=== PATIENT | female | born 1980 | race Caucasian/White ===

== ENCOUNTER 2018-11-07 07:04 | Inpatient (IN) | payer MEDICAID ==
[~2018-11-07] VITALS: Ht 160 cm; Wt 99.3 kg
[~2018-11-07 07:04] MED LIST: DOCU240C84 PO; FERR-41 PO; IBUP600T22 PO; OXYC-865 PO; SERT-173 PO; TRAZ50 PO
[2018-11-07 07:20] VITALS: BP 124/72; Ht 160 cm; Wt 99.3 kg
[2018-11-07] MEDS ORDERED: FLUSH 10 ML SYR IVP PRN ×2 (08:25→09:05)
[2018-11-07] MEDS ORDERED: OXYTOCIN 30 UNIT/D5LR 500 ML 500 ML IV PRN ×2 (08:25→09:03)
[2018-11-07] MEDS ORDERED: FAMOTIDINE(*) 20MG/50ML PREMIX 50 ML IVPB PRN (08:25)
[2018-11-07] MEDS ORDERED: METOCLOPRAMIDE 10 MG/2 ML SDV IVP PRN (08:25)
[2018-11-07] MEDS ORDERED: cefOXitin/DEX(*) 2GM/50ML PREM 50 ML IVPB PRN (08:25)
[2018-11-07] MEDS ORDERED: DLR(*) 1000 ML BAG 1,000 ML IV PRN (08:25)
[2018-11-07] MEDS ORDERED: LIDOCAINE 1% LOCAL 300 MG/30ML INJ PRN (08:25)
[2018-11-07] MEDS ORDERED: fentaNYL CITR 100 MCG/2 ML AMP IVP PRN (09:05)
[2018-11-07] MEDS ORDERED: LIDOCAINE/SOD BICARB 8.4% SYR SC PRN (09:05)
[2018-11-07] MEDS ORDERED: TERBUTALINE SULF 1 MG/ML VIAL IVP PRN (09:05)
[2018-11-07 09:18] LABS: PLATELET COUNT, AUTOMATED 193 K/uL (150-450)
--- NOTE | 2018-11-07 09:27 | History & Physical ---
History of Present Illness Age of Patient: 37 : 4 Para or TPAL: 3 EDC per LMP: Nov 12, 2018 Estimated Gestational Age: 39.2 Chief Complaint Ruptured membranes History of Present Illness Presented this AM with report of ruptured membranes with a large gush of fluid. No bleeding and no significant contractions currently. Pt has had a prior C/S for breech with her last in 2012 with 2 prior vaginal deliveries at 9 lbs each. She has a history of prior cervical dysplasia and a LEEP in 2010 and 2016. She desires sterilization but is waiting until is resolved to then have a hysterectomy due to heavy bleeding and pain with periods. uncomplicated otherwise. Past Medical, Surgical, Family and Obstetric Histories reviewed. Please see ACOG chart. History Allergies: Coded Allergies: Estrogens (Verified Allergy, Intermediate, rash, 04/05/13) rash and nausea with PO Birthcontrol Uncoded Allergies: VITAMINS (Allergy, Unknown, 10/17/18) Med Rec Home Meds Reported Medications Ibuprofen (IBUPROFEN) 600 Mg Tablet, 1 TAB PO Q6H, #30 Last dose at 10:30 04/07/13 04/07/13 Oxycodone Hcl/Acetaminophen (PERCOCET 5-325 MG TABLET) 1 Each Tablet, 1 - 2 EACH PO Q4H, #30 do not take more than 8 pills in 24 hours 04/07/13 Ferrous Sulfate (FERROUS SULFATE) 325 Mg Tablet.dr, 325 MG PO BID, #60 04/07/13 Review of Systems All Systems Reviewed/Normal: Yes, Except as Noted Exam General Exam General Apperance: Alert/Awake/No Acute Distress Neuro: No Gross deficits Eyes: Normal Extraocular Movement & Vison Cardiovascular: Regular Rate and Rhythm Respiratory: No Respiratory Distress, Clear to Auscultation Abdomen: Soft, Non-Tender, Non-Distended Integumentary: Skin Intact without Lesions or Rash Psychological: Alert & Oriented X3, Appropriate Mood & Affect Cervical Dialation: 2 Cervical Effacement (%): 60 Cervical Consistency: Soft Cervical Position: Mid Station: -2 Presentation: Vertex Fetus Heart Tone Variabilty: Moderate FHT Accelerations: 15X15 FHT Category: I Medical Decision Making VTE Prophylasis: Adult Deep Vein Thrombosis/Pulmonary: No Pharmacological Contraindicati: Pt at Low Risk for VTE Mechanical Contraindications: Pt at Low Risk for VTE Assessment and Plan Problems: (1) Uterine scar from previous delivery affecting Assessment & Plan: Have had a long discussion of TOLAC and [place]. Reviewed risk of rupture and difficulty in diagnosis many times. Also reviewed increase risk with augmentation or IOL with Pitocin but difficult to determine the amount of increased risk. Contrasted this discussion with the risk of and its inherent risk of infection, bleeding and longer recovery. After discussion with her family, she has elected to proceed with Pitocin induction and see how her progression into labor goes. We will reassess the situation at many times during the process and alter course if needed. (2) AMA (advanced maternal age) multigravida 35+ DAREN MONTALVO MD Nov 07, 2018 09:27
[2018-11-07] MEDS: LR(*) 1000 ML BAG 1,000 ML IV PRN ×2 (10:16→15:22)
--- NOTE | 2018-11-07 13:45 | Labor Progress Note ---
Labor Subjective Progress Notes Subjective Dong well. Pain manageable. Difficult to trace contractions and looks like there are reactive changes to FHTs. Labor Objective Vital Signs Vital Signs Date Time Temp Pulse Resp B/P (MAP) Pulse Ox O2 Delivery O2 Flow Rate FiO2 11/07/18 07:20 97.0 97 16 124/72 (89) 95 Room Air Cervical Dialation: 5 Cervical Effacement (%): 100 Cervical Consistency: Soft Cervical Position: Anterior Presentation: Vertex Fetus Heart Tone Variabilty: Moderate FHT Decelerations: Variable (with contractions) FHT Category: I Other Result Diagram: 11/07/18 0902 Assessment and Plan Problems: (1) Uterine scar from previous delivery affecting Assessment & Plan: IUPC placed to better trace contractions and reactive changes. Discussed epidural placement for use if needed. She will decide. (2) AMA (advanced maternal age) multigravida 35+ DAREN MONTALVO MD Nov 07, 2018 13:45
[2018-11-07] MEDS: fentaNYL CITR 100 MCG/2 ML AMP IVP PRN ×3 (13:51→16:27)
[2018-11-07] MEDS ORDERED: NS(*) 0.9% 1000 ML BAG 1,000 ML PV PRN (15:52)
--- NOTE | 2018-11-07 17:32 | OB Delivery Note ---
Delivery Note Vaginal Delivery Type: Spont. Vaginal Delivery Delivery Date: Nov 07, 2018 Delivery Time: 17:12 Estimated Gestational Age(wks): 39.2 Infant Sex: Male Hamilton Apgars: 1 Minute (7), 5 Minute (8) Repair Needed: Laceration, 1st Degree Estimated Blood Loss: 100 Notes: Presented for SROM today at 0200. No contractions so augmentation with Pitocin initiated. Progressed from 2 cm on admission to 5 cy by 1333, 7 cm by 1513 and complete by 1712. No anesthesia so delivered quickly over first degree laceration without any manipulation. Placenta delivered intact and spontaneous. No complications. Single figure 8 stitch placed without complication. Purchase Request Editor in Attendence: No Copies to: DAREN MONTALVO MD ; DAREN MONTALVO MD Nov 07, 2018 17:32
[2018-11-07] MEDS ORDERED: ACETAMINOPHEN 325 MG TAB PO PRN (18:20)
[2018-11-07] MEDS ORDERED: MAGNESIUM HYDROXIDE* 30ML UDCP PO PRN (18:20)
[2018-11-07] MEDS ORDERED: HYDROmorphone HCL 2 MG TAB PO PRN (18:20)
[2018-11-07] MEDS ORDERED: BENZOCAINE 20% 60 ML BTL TP PRN (18:20)
[2018-11-07] MEDS ORDERED: HYDROCORTISONE 2.5% CR 30GM TB PR PRN (18:20)
[2018-11-07] MEDS ORDERED: LANOLIN OINT 7 GM TUBE TP PRN (18:20)
[2018-11-07] MEDS ORDERED: GLYCERIN/WITCH HAZEL LEAF 1 PK TP PRN (18:20)
[2018-11-07 19:57] VITALS: BP 123/57
[2018-11-07] MEDS: DOCUSATE CALCIUM 240 MG CAP PO SCH (20:00)
[2018-11-07] MEDS: IBUPROFEN 800 MG TAB PO SCH (20:00)
[2018-11-07] MEDS: METHYLERGONOVINE MAL 0.2MG TAB PO SCH (21:15)
[2018-11-07 22:41] VITALS: BP 115/58
[2018-11-08] MEDS: IBUPROFEN 800 MG TAB PO SCH ×3 (03:03→21:13)
[2018-11-08] MEDS: METHYLERGONOVINE MAL 0.2MG TAB PO SCH ×4 (03:03→21:13)
[2018-11-08 03:05] VITALS: BP 110/56
--- NOTE | 2018-11-08 07:56 | OB/GYN Progress Note ---
OB Subjective Progress Notes Subjective Feeling well. Some more bleeding than expected and improved with Methergine. Bladder is ok. Baby went to nursery last night. GI: NEG Nausea : Voiding Well Pain: Mild OB Objective Physical Exam Vital Signs Date Time Temp Pulse Resp B/P (MAP) Pulse Ox O2 Delivery O2 Flow Rate FiO2 11/08/18 03:05 97.3 85 18 110/56 (74) 11/07/18 07:20 95 Room Air Intake and Output 11/08/18 07:00 Intake Total 1500 ml Output Total 415 ml Balance 1085 ml Intake IV Total 1500 ml Output Other 415 ml # Voids 3 General Appearance: Alert/Awake/No Acute Distress Neurological: No Gross deficits Eyes: Normal Extraocular Movement & Vison Cardiovascular: Normal Rhythm & Peripheral Pulses, Regular Rate and Rhythm Respiratory: No Respiratory Distress, Clear to Auscultation Abdomen: Soft, Non-Tender, Non-Distended, Fundus Firm, Non-Tender Integumentary: Skin Intact without Lesions or Rash Psychological: Alert & Oriented X3, Appropriate Mood & Affect Result Diagram: 11/08/18 0621 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 Home tomorrow depending on baby. May room in if needed. DAREN MONTALVO MD Nov 08, 2018 07:56
[2018-11-08] MEDS ORDERED: MEASLES,MUMP,RUBELLA VAC 0.5ML SUBQ ONE (09:00)
[2018-11-08] MEDS ORDERED: DIPHTH/TETANUS/ACEL. PERTUSSIS IM ONLY ONE (09:00)
[2018-11-08] MEDS ORDERED: INFLUENZA VIRUS VAC 0.5ML SYR IM ONLY ONE (09:00)
[2018-11-08 09:50] VITALS: BP 117/62
[2018-11-08] MEDS: DOCUSATE CALCIUM 240 MG CAP PO SCH ×2 (10:02→21:13)
[2018-11-08 11:52] VITALS: BP 121/63
[2018-11-08 16:15] VITALS: BP 109/58
[2018-11-08 22:10] VITALS: BP 114/65
[2018-11-09 04:10] VITALS: BP 103/57
[2018-11-09] MEDS: IBUPROFEN 800 MG TAB PO SCH ×2 (04:24→11:50)
[2018-11-09 08:25] VITALS: BP 114/69
[2018-11-09] MEDS: DOCUSATE CALCIUM 240 MG CAP PO SCH (08:57)
--- NOTE | 2018-11-09 09:32 | OB/GYN Progress Note ---
OB Subjective Progress Notes Subjective Doing well but worried about her baby. He has heart rate issues today and is being investigated. She feels well, no pain and bleeding scant. She notes her last children had progressively less breast milk production and wants to try something to increase her production. GI: NEG Nausea : Voiding Well Pain: Mild, Not Requiring Pain Meds OB Objective Physical Exam Vital Signs Date Time Temp Pulse Resp B/P (MAP) Pulse Ox O2 Delivery O2 Flow Rate FiO2 11/09/18 08:25 96.8 79 18 114/69 (84) 11/09/18 04:10 Room Air 11/08/18 16:15 96 Intake and Output 11/09/18 07:00 Intake Total 1780 ml Balance 1780 ml Intake Oral 1780 ml # Voids 4 General Appearance: Alert/Awake/No Acute Distress Neurological: No Gross deficits Eyes: Normal Extraocular Movement & Vison Cardiovascular: Normal Rhythm & Peripheral Pulses, Regular Rate and Rhythm Respiratory: No Respiratory Distress, Clear to Auscultation Abdomen: Soft, Non-Tender, Non-Distended, Fundus Firm, Non-Tender Integumentary: Skin Intact without Lesions or Rash Psychological: Alert & Oriented X3, Appropriate Mood & Affect Result Diagram: 11/08/18 0621 Assessment and Plan Problems: (1) Uterine scar from previous delivery affecting Assessment & Plan: s/p successful (2) AMA (advanced maternal age) multigravida 35+ (3) care and examination immediately after delivery Assessment & Plan: Will discharge to room in today. No pain medication needed. Discussed good breast feeding technique and timely pumping and nipple stimulation. DAREN MONTALVO MD Nov 09, 2018 09:32
[2018-11-09] MEDS ORDERED: IBUP800T37 PO (09:34)
--- NOTE | 2018-11-09 09:36 | OB/GYN Discharge Summary ---
Discharge Summary Reason for Hosp/Final Diag: (1) Uterine scar from previous delivery affecting Hospital Course & Plan: s/p successful (2) AMA (advanced maternal age) multigravida 35+ (3) care and examination immediately after delivery Hospital Course & Plan: Will discharge to room in today. No pain medication needed. Discussed good breast feeding technique and timely pumping and nipple stimulation. Lates Vital Signs Vital Signs Date Time Temp Pulse Resp B/P (MAP) Pulse Ox O2 Delivery O2 Flow Rate FiO2 11/09/18 08:25 96.8 79 18 114/69 (84) 11/09/18 04:10 Room Air 11/08/18 16:15 96 Weight (Pounds): 219 Result Diagram: 11/08/18620 Condition: Improved Discharge: Home, Self Skilled Nursing Meds Reported Medications Ibuprofen (IBUPROFEN) 600 Mg Tablet, 1 TAB PO Q6H, #30 Last dose at 10:30 04/07/13 04/07/13 Oxycodone Hcl/Acetaminophen (PERCOCET 5-325 MG TABLET) 1 Each Tablet, 1 - 2 EACH PO Q4H, #30 do not take more than 8 pills in 24 hours 04/07/13 Ferrous Sulfate (FERROUS SULFATE) 325 Mg Tablet., 325 MG PO BID, #60 04/07/13 Follow up Referrals: 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 Lopez [phone] Follow up in: 6 wks PP or PO Discharge Diet: As Tolerates Discharge Activity: As Tolerates, No Heavy Lifting x 6 wks, No Heavy Lifting > 10lb, Pelvic Rest Copies to: DAREN LOPEZ MD ; DAREN LOPEZ MD Nov 09, 2018 09:36
[2018-11-09] MEDS ORDERED: METOCLOPRAMIDE 10 MG TAB PO SCH (12:00)
[2018-11-09 12:20] VITALS: BP 113/65
== END 2018-11-09 16:18 | disposition home or self-care (01) | DRG 807 ==
LOC: OB 07:04
PROVIDERS: ADMIT Obstetrics & Gynecology; ATTEND Obstetrics & Gynecology
PROC: 10E0XZZ Delivery of Products of Conception, External Approach (ICD-10-PCS; principal; 2018-11-07)
PROC: 0HQ9XZZ Repair Perineum Skin, External Approach (ICD-10-PCS; 2018-11-07)
PROC: 10H07YZ Insertion of Other Device into Products of Conception, Via Natural or Artificial Opening (ICD-10-PCS; 2018-11-07)
PROC: 4A1H74Z Monitoring of Products of Conception, Cardiac Electrical Activity, Via Natural or Artificial Opening (ICD-10-PCS; 2018-11-07)
DX: O34.211 Maternal care for low transverse scar from previous cesarean delivery (principal); Z37.0 Single live birth; O70.0 First degree perineal laceration during delivery; O42.02 Full-term premature rupture of membranes, onset of labor within 24 hours of rupture; Z3A.39 39 weeks gestation of pregnancy; Z88.8 Allergy status to other drugs, medicaments and biological substances
CPT/HCPCS: 36415; 81001; 84112; 85025; 85027; 86703; 86850; 86900; 86901; J2001; J2590; J3010; J7120; J8597

== ENCOUNTER 2019-02-22 01:33 | Observation (INO) | payer BC, MEDICAID ==
[2018-11-07 07:20] VITALS: Ht 160 cm; Wt 89.8 kg
[2019-02-22] VITALS (17 sets, daily range): BP systolic 83–109; BP diastolic 55–70
[~2019-02-22] VITALS: Ht 160 cm; Wt 89.8 kg
[~2019-02-22 01:33] MED LIST changes: +IBUP800T37 PO; +MULT-1176 PO
[2019-02-22] MEDS ORDERED: FAMOTIDINE 20 MG TAB PO ONE (06:30)
[2019-02-22] MEDS ORDERED: LIDOCAINE/SOD BICARB 8.4% SYR ID ONE (06:30)
[2019-02-22] MEDS ORDERED: MIDAZOLAM 2 MG/2 ML VIAL IVP PRN (06:30)
[2019-02-22] MEDS ORDERED: cefOXitin/DEX(*) 2GM/50ML PREM 50 ML IVPB ONE (06:30)
[2019-02-22] MEDS ORDERED: NORMOSOL R SOLN(*) 1000 ML BAG 1,000 ML IV PRN (06:30)
[2019-02-22 06:42] LABS: PLATELET COUNT, AUTOMATED 267 K/uL (150-450)
[2019-02-22] MEDS ORDERED: ROPIVACAINE 0.2% 20 ML VIAL ONE (06:59)
[2019-02-22] MEDS ORDERED: MANNITOL* (20%)100 GM/500ML BG 500 ML IVPB ONE (06:59)
[2019-02-22] MEDS ORDERED: fentaNYL CITR 250 MCG/5 ML AMP ONE (07:02)
[2019-02-22] MEDS ORDERED: LIDOCAINE MPF 1% 5 ML VIAL ONE (07:03)
[2019-02-22] MEDS ORDERED: ONDANSETRON 4 MG/2 ML VIAL ONE (07:03)
[2019-02-22] MEDS ORDERED: PROPOFOL EMUL(*) 10MG/ML 20 ML 20 ML ONE (07:03)
[2019-02-22] MEDS ORDERED: DEXAMETHASONE SOD PHOS 10MG/ML ONE (07:03)
[2019-02-22] MEDS ORDERED: KETAMINE HCL 200 MG/20 ML MDV ONE (07:06)
[2019-02-22] MEDS ORDERED: HALOPERIDOL LACT 5 MG/ML VIAL IM ONE (07:20)
[2019-02-22] MEDS ORDERED: ACETAMINOPHEN(*)1000 MG/100 ML 100 ML IVPB ONE (07:20)
[2019-02-22] MEDS ORDERED: ePHEDrine 25 MG/5 ML DISP.SYR IVP ONE (07:25)
[2019-02-22] MEDS ORDERED: SUGAMMADEX SOD 200 MG/2 ML SDV ONE (07:41)
[2019-02-22] MEDS ORDERED: HYDROmorphone HCL 2 MG/ML SDV ONE (08:24)
[2019-02-22] MEDS ORDERED: KETOROLAC 30 MG/ML VIAL ONE (09:19)
--- NOTE | 2019-02-22 09:44 | Post Operative Note ---
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
[2019-02-22] MEDS ORDERED: DLR(*) 1000 ML BAG 1,000 ML IV PRN (09:49)
[2019-02-22] MEDS ORDERED: ONDANSETRON 4 MG/2 ML VIAL IV PRN (09:50)
[2019-02-22] MEDS ORDERED: ACETAMINOPHEN 325 MG TAB PO PRN (09:50)
[2019-02-22] MEDS ORDERED: HYDROmorphone HCL 2 MG TAB PO PRN (09:50)
[2019-02-22] MEDS ORDERED: INFLUENZA VIRUS VAC 0.5ML SYR IM ONE (09:50)
[2019-02-22] MEDS ORDERED: PROMETHAZINE 25 MG/ML 1 ML AMP IVP PRN (09:50)
[2019-02-22] MEDS ORDERED: oxyCODON/ACET (*)5/325MG (CII) 1 TAB TAB PO PRN (09:50)
[2019-02-22] MEDS ORDERED: SIMETHICONE 80 MG CHEW CHEW PRN (09:50)
[2019-02-22] MEDS ORDERED: OXYC-865 PO (09:55)
[2019-02-22] MEDS ORDERED: DOCU-416 PO (09:55)
[2019-02-22] MEDS ORDERED: IBUP800T37 PO (09:55)
--- NOTE | 2019-02-22 10:30 | OPERATIVE REPORT 1 ---
EVENT DATE: February 22, 2019 SURGEON: Monty Lopez MD ANESTHESIOLOGIST: Jordan Paulson MD ANESTHESIA: General endotracheal. REGIONAL MARKETING MANAGER: KAYLA Villegas PREOPERATIVE DIAGNOSES 1. Secondary dysmenorrhea. 2. Excessive infrequent menstruation with irregular cycle. 3. Menorrhagia. 4. Previous section. POSTOPERATIVE DIAGNOSES 1. Secondary dysmenorrhea. 2. Excessive infrequent menstruation with irregular cycle. 3. Menorrhagia. 4. Previous section. PROCEDURE PERFORMED 1. Robotic-assisted total laparoscopic hysterectomy. 2. Bilateral salpingectomy. 3. Modified Kang's culdoplasty. 4. Diagnostic cystoscopy. ESTIMATED BLOOD LOSS 50 cc. FLUIDS 1400 cc IV crystalloid. FINDINGS Enlarged boggy appearing uterus. Normal ovaries bilaterally. Normal appearing bladder postsurgical and patent ureters bilaterally. PROCEDURE IN DETAIL The patient was brought to the operating room with a working IV and placed in the dorsal supine position on the operating table. She was then prepped and draped in the usual sterile fashion. A weighted speculum was placed in the vagina. The cervix was grasped on the anterior lip with a single-tooth tenaculum. It was carefully sounded to a depth of 10 cm. A large VCare uterine manipulator was selected, assembled, passed through the cervix into the uterus, bulb inflated and secured and the VCare cup was sutured to the cervix. The NuMo cup was approximated and secured and then Mcgarry catheter was placed to dependent drainage. Legs were brought back to the supine position and gloves were changed. Target anatomy was identified and measured 12 cm above to approximately 2 cm above the umbilicus, where an area was marked and infiltrated with 0.2% Naropin. An 8 mm stab incision was made and towel clips were used to elevate the abdominal wall while a Veress needle was passed through this incision into the abdomen, confirming a negative pressure upon entry and then insufflating until 20 mmHg pressure in the abdomen was obtained. Veress needle was then removed and 8 mm robotic trocar was passed through this incision into the abdomen under direct visualization with the scope. Four additional ports were placed as follows: All 8 mm in size. Two left lateral spaced at 8 cm and two right lateral spaced at 8 cm. These were all placed under direct visualization and without incident. The patient was then moved to the Trendelenburg position. Bowel was swept away. Target anatomy was inspected. The above findings were noted. The robot was then brought overlying the patient and then docked. The camera was docked and target anatomy was identified to the camera and then a targeting procedure was performed. The table was adjusted in order to ensure appropriate vertical clearance and the targeting procedure passed. Therefore, all remaining arms were docked and instruments were placed and brought into the abdomen under direct visualization. Upon completion, I scrubbed out and presented at the console. The right fallopian tube was grasped and elevated, exposing the mesosalpinx, which was dissected through using the vessel sealer up to the utero-ovarian ligament, which was cauterized and transected with the vessel sealer. The round ligament was then cauterized and transected, entering the broad ligament, which was then into anterior and posterior leaflets. The anterior leaflet was dissected along the anterior uterus, where a previous scar had been identified. The VCare cup was palpable from below and careful dissection in this location was performed in order to ensure the bladder was dissected away and out of harm's way. An anterior colpotomy was performed to confirm the location of the VCare cup. The uterus was then elevated and the posterior peritoneum was dissected, exposing the uterine vasculature, which was then cauterized in a perpendicular fashion x2 and transected. Lateral bites parallel to the uterus were then taken down to and overlying the VCare cup. Attention was then turned to the contralateral side, which in likewise fashion the left tube was put on stretch, exposing the mesosalpinx and was dissected away through the mesosalpinx up to the utero- ovarian ligament, which was cauterized and transected. Then cauterizing and transecting the round ligament, we entered the broad ligament and it into anterior and posterior leaflets. The anterior leaflet was followed down towards the bladder, completing the anterior dissection, and the uterine vasculature was skeletonized posteriorly. The uterine vessels were then cauterized in perpendicular fashion x2 and transected. Parallel bites along the lateral uterus were then taken down and overlying the VCare cup. There were no visible complications at this point. Therefore, the colpotomy incision was extended circumferentially through the uterosacral ligaments bilaterally to the contralateral side, which released the cervix from its pelvic attachment and the uterus, tubes and cervix were taken out through the vagina. There was immediately noted some bleeders along the left vascular pedicle and the vessel sealer was swapped out for the bipolar grasper, which was used to cauterize these bleeders, where I was able to identify them. Suction and irrigation was performed as well. Once adequately hemostatic, instruments were swapped for suturing and an 0 Vicryl was used to perform a cjjxtb-yi-rkump stitch and the left vascular pedicle, vaginal angle and securing it to the uterosacral ligament on that side. This was performed in a xxlwxb-[id number]-cytjo fashion and tied. There was still a light amount of oozing along the vascular pedicle, which received an additional otetoo-qq-ntqam stitch on that side, taking care to avoid incorporating the ureter into that location. Once completed, this was hemostatic. Therefore, the same procedure was followed on the contralateral side with a [id number]-gv-yzxdp fashion and securing it to the ipsilateral uterosacral ligament. A 2-0 VLoc was then used to close the vagina in a running nonlocking stitch along its entire length with excellent hemostasis and reapproximation of the skin edges. The entire pelvis was copiously irrigated, suctioned dry. All clots were evacuated. No visible complications or bleeders. Therefore, the procedure was terminated. All instruments were removed from the patient's abdomen after the pneumoperitoneum had been suctioned out. Skin incisions were repaired with 4-0 Monocryl simple subdermal and covered with Dermabond skin adhesive. The bladder was then inspected through the cystoscope in order to confirm no visible injuries. The bladder was intact and without injury. Both ureters were observed to have strong urine jets with visible patency. Therefore, the bladder was drained. Mcgarry was left out and she was returned to the dorsal supine position, awakened from general anesthesia in stable condition and taken to recovery. Sponge, lap, needle and instrument counts were all correct x3. MTDD
[2019-02-22] MEDS: KETOROLAC 30 MG/ML VIAL IVP SCH ×2 (15:56→22:31)
[2019-02-22] MEDS ORDERED: ZOLPIDEM TARTRATE 10 MG TAB PO PRN (21:00)
[2019-02-22] MEDS: DOCUSATE CALCIUM 240 MG CAP PO SCH (21:00)
[2019-02-22] MEDS: FAMOTIDINE 20 MG TAB PO SCH (22:32)
[2019-02-23 00:24] VITALS: BP 93/52
[2019-02-23 06:01] LABS: PLATELET COUNT, AUTOMATED 286 K/uL (150-450)
[2019-02-23 06:05] VITALS: BP 92/46
[2019-02-23 07:55] VITALS: BP 90/61
--- NOTE | 2019-02-23 08:05 | OB/GYN Progress Note ---
OB Subjective Progress Notes Subjective Feeling well. Minor pain and no bleeding. Ambulating and voiding well. Wants to go home. GI: NEG Nausea : Voiding Well Pain: Mild OB Objective Physical Exam Vital Signs Date Time Temp Pulse Resp B/P (MAP) Pulse Ox O2 Delivery O2 Flow Rate FiO2 02/23/19 06:05 98.4 75 16 92/46 (61) 92 Nasal Cannula 2.0 Intake and Output 02/23/19 06:59 Intake Total 3600 ml Output Total 775 ml Balance 2825 ml Intake Oral 2100 ml IV Total 1500 ml Output Urine Total 725 ml Estimated Blood Loss 50 ml # Voids 3 General Appearance: Alert/Awake/No Acute Distress Neurological: No Gross deficits Cardiovascular: Normal Rhythm & Peripheral Pulses, Regular Rate and Rhythm Respiratory: No Respiratory Distress, Clear to Auscultation Abdomen: Soft, Non-Tender, Non-Distended Incision: Clean, Dry, Intact, Dermabond Integumentary: Skin Intact without Lesions or Rash Psychological: Alert & Oriented X3, Appropriate Mood & Affect Result Diagram: 02/23/19 0551 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 Discharge instructions reviewed and precautions given. f/u at 6 weeks. (2) History of robot-assisted laparoscopic hysterectomy DAREN MONTALVO MD Feb 23, 2019 08:05
--- NOTE | 2019-02-23 08:06 | Short(Outpt) Discharge Summary ---
Discharge Summary Reason for Hosp/Final Diag: (1) Other specified aftercare following surgery Hospital Course & Plan: Home today. Discharge instructions reviewed and precautions given. f/u at 6 weeks. (2) History of robot-assisted laparoscopic hysterectomy Departure Discharge to: Home, Self Care Discharge Instructions Home Meds Active Scripts Oxycodone Hcl/Acetaminophen (PERCOCET 5-325 MG TABLET) 1 Each Tablet, 1 EACH PO Q4-6H PRN for PAIN, #20 TAB 0 Refills TAKE 1 TABLET NEEDED FOR PAIN - NO CLOSER THAN EVERY 4-6 HOURS. Prov:MARK FUNES 02/22/19 Reported Medications Multivits,Ca,Minerals/Iron/Fa (WOMEN'S DAILY CAPLET) 1 Each Tablet, 1 EACH PO DAILY 02/17/19 Discontinued Reported Medications Ferrous Sulfate (FERROUS SULFATE) 325 Mg Tablet., 325 MG PO BID, #60 04/07/13 Discontinued Scripts Ibuprofen (IBUPROFEN) 800 Mg Tablet, 800 MG PO Q8H PRN for PAIN, #30 TAB 0 Refills Prov:DAREN MONTALVO MD 11/09/18 Follow up Referrals: STATISTICAL GENETICIST - In Two Weeks @ [facility] with DAREN MONTALVO MD Diet: Regular Activity: As Tolerated, No Heavy Lifting, No Exertion Copies to: DAREN MONTALVO MD ; DAREN MONTALVO MD Feb 23, 2019 08:06
[2019-02-23] MEDS: FAMOTIDINE 20 MG TAB PO SCH (09:09)
[2019-02-23] MEDS: DOCUSATE CALCIUM 240 MG CAP PO SCH (09:09)
[2019-02-23] MEDS ORDERED: IBUPROFEN 800 MG TAB PO PRN (10:00)
== END 2019-02-23 08:05 | disposition home or self-care (01) ==
LOC: OR 01:33 → PED 11:00
PROVIDERS: ADMIT Obstetrics & Gynecology; ATTEND Obstetrics & Gynecology
DX: N94.5 Secondary dysmenorrhea (principal); N91.5 Oligomenorrhea, unspecified
CPT/HCPCS: 36415; 58571; 84703; 85014; 85018; 85025; 88307; 96372; G0378; J0131; J0694; J1100; J1170; J1630; J1885; J2001; J2250; J2405; J2704; J2795; J3010; J3490; S2900